=== PATIENT | male | born 1995 | race Caucasian/White ===

== ENCOUNTER 2024-11-29 21:17 | Emergency (ER) | payer MEDICAID, OTHER ==
[~2024-11-29] VITALS: Ht 165.1 cm; Wt 77.3 kg
[2024-11-29 21:29] VITALS: BP 129/82; PULSE 114; RESP 17; TEMP 98.4; O2SAT 100
[2024-11-29 23:03] LABS: PLATELET COUNT (AUTO) 264 K/uL (150-450); RED BLOOD CELL COUNT(AUTO) 5.01 MIL/uL (4.50-5.90); RED CELL DISTRIBUTION WIDTH 12.7 % (11.5-14.5); WHITE BLOOD COUNT (AUTO) 11.5 K/uL (4.5-11.0)
[2024-11-29 23:06] LABS: CALCIUM, TOTAL 8.4 mg/dL (8.8-10.5); CREATININE 0.66 mg/dL (0.60-1.30); GLOMERULAR FILTR. RATE CALC > 60 mL/min (>60); GLUCOSE,RANDOM 137 mg/dL (70-110); SODIUM SERUM 136 mmol/L (136-145); UREA NITROGEN, BLOOD 13 mg/dL (7-18)
[2024-11-29 23:11] LABS: ASPARTATE AMINOTRANSFERASE 32.0 U/L (15-37); CREATINE KINASE, TOTAL ONLY 84.0 U/L (39-308); TOTAL PROTEIN, SERUM 7.2 g/dL (6.4-8.2)
[2024-11-29 23:17] LABS: TROPONIN I-HIGH SENSITIVITY 4 ng/L (<76)
== END 2024-11-30 00:21 | disposition left against medical advice (07) ==
LOC: EMS 21:17
DX: R07.9 Chest pain, unspecified (principal); Z53.21 Procedure and treatment not carried out due to patient leaving prior to being seen by health care provider
CPT/HCPCS: 71045; 80048; 80076; 82550; 83880; 84484; 85025; 93005; 36415-L1; 36415-TC